=== PATIENT | male | born 1985 | race Two or more races ===

== ENCOUNTER 2020-09-15 02:01 | Emergency (ER) | payer SELFPAY ==
[~2020-09-15] VITALS: Ht 162.6 cm; Wt 72.6 kg
[2020-09-15 02:12] VITALS: BP 155/75
== END 2020-09-15 02:58 | disposition left against medical advice (07) ==
LOC: EDBD 02:01 → ER 02:01
DX: S01.511A Laceration without foreign body of lip, initial encounter (principal); Z53.21 Procedure and treatment not carried out due to patient leaving prior to being seen by health care provider; W26.0XXA Contact with knife, initial encounter; Y93.89 Activity, other specified; Y92.89 Other specified places as the place of occurrence of the external cause; Y99.8 Other external cause status